=== PATIENT | female | born 1995 | race Caucasian/White ===

== ENCOUNTER 2020-01-06 16:31 | Outpatient (CLI) | payer OTHER | END 2020-01-07 11:01 | disposition home or self-care (01) | LOC: OBS/DEL 16:31 | PROVIDERS: ATTEND Specialist | DX: O47.1 False labor at or after 37 completed weeks of gestation (principal) ==

== ENCOUNTER 2020-03-16 01:57 | Inpatient (IN) | payer OTHER ==
[~2020-03-16] VITALS: Ht 160 cm; Wt 61.2 kg
[2020-03-17] MEDS ORDERED: FEOSOL325 MG PO (08:01)
[2020-03-17] MEDS ORDERED: RHOGAM ULTR1500 UNIT IM (08:11)
== END 2020-03-18 15:11 | disposition home or self-care (01) | DRG 807 ==
LOC: OB/GYN 01:57 → LDR 01:57 → OB/GYN 08:41
PROVIDERS: ADMIT Specialist; ATTEND Specialist
PROC: 10E0XZZ Delivery of Products of Conception, External Approach (ICD-10-PCS; principal; 2020-03-16)
PROC: 0HQ9XZZ Repair Perineum Skin, External Approach (ICD-10-PCS; 2020-03-16)
PROC: 4A1HXFZ Monitoring of Products of Conception, Cardiac Rhythm, External Approach (ICD-10-PCS; 2020-03-16)
DX: O70.0 First degree perineal laceration during delivery (principal); Z37.0 Single live birth; Z3A.37 37 weeks gestation of pregnancy; Z20.828 Contact with and (suspected) exposure to other viral communicable diseases